=== PATIENT | female | born 1970 | race Caucasian/White ===

== ENCOUNTER 2016-02-29 03:57 | Emergency (ER) | payer OTHER ==
[~2016-02-29] VITALS: Ht 180.3 cm; Wt 99.4 kg
[2016-02-29 05:00] LABS: EOSINOPHIL (%) 6.3 % (0-5); EOSINOPHIL COUNT 0.5 K/uL (0-0.3); IMMATURE GRANULOCYTE (%) 0.1 % (0.0-0.7); IMMATURE GRANULOCYTE COUNT 0.1 K/uL; LYMPHOCYTE COUNT 1.9 K/uL (1.0-2.8); MCH 30.8 PG (29.0-34.0); MCHC 35.1 G/DL (30.0-36.0); MCV 87.8 FL (83-99); MEAN PLAT.VOLUME 10.8 uM^3 (9.5-12.4); MONOCYTE (%) 6.7 % (3-12); MONOCYTE COUNT 0.5 K/uL (0-0.8); NEUTROPHIL (%) 62.2 % (45-76); NEUTROPHIL COUNT 4.8 K/uL (1.8-6.4); PLATELET COUNT 160 K/uL (156-360); RBC DIS.WIDTH-CV 12.8 % (11.8-14.6); RBC DIS.WIDTH-SD 40.2 % (39-53); RED BLOOD COUNT 4.67 M/uL (3.80-5.20); WHITE BLOOD COUNT 7.8 K/uL (4.1-10.2)
[2016-02-29 05:11] LABS: CHLORIDE 105 mEq/L (99-109); POTASSIUM 3.4 mEq/L (3.7-5.4); SODIUM 138 mEq/L (136-147)
[2016-02-29 05:12] LABS: GLUCOSE 127 mg/dL (70-99)
[2016-02-29 05:14] LABS: ANION GAP 10 MEQ/L (2-14)
[2016-02-29 05:16] LABS: GFR ESTIMATE (CALCULATED) > 59 mL/min/
[2016-02-29 05:17] LABS: UREA NITROGEN (BUN) 9 mg/dL (9-23)
[2016-02-29] MEDS ORDERED: DUONEB 2.5-0.5 M3 ML AEROSOL (06:26)
[2016-02-29] MEDS ORDERED: NEBULIZER MC (06:26)
[2016-02-29] MEDS ORDERED: ADULT AEROSOL1 EACH MC (06:26)
[2016-02-29] MEDS ORDERED: ALBUTEROL2.5 MG/3 M IH (06:26)
[2016-02-29] MEDS ORDERED: PROAIR RESPICL90 MCG IH (06:26)
[2016-02-29 06:31] VITALS: BP 129/75
== END 2016-02-29 06:32 | disposition home or self-care (01) ==
LOC: EME 03:57
PROVIDERS: Emergency Medicine
DX: J06.9 Acute upper respiratory infection, unspecified (principal); J45.901 Unspecified asthma with (acute) exacerbation; F17.200 Nicotine dependence, unspecified, uncomplicated
CPT/HCPCS: 71020; 80048; 83880; 85025; 94640; 99281; 99284; J1100

== ENCOUNTER 2016-03-11 21:07 | Inpatient (IN) | payer OTHER ==
[~2016-03-11] VITALS: Ht 180.3 cm; Wt 99.1 kg
[~2016-03-11 21:07] MED LIST: ADULT AEROSOL1 EACH MC; ALBUTEROL2.5 MG/3 M IH; DUONEB 2.5-0.5 M3 ML AEROSOL; NEBULIZER MC; PROAIR RESPICL90 MCG IH
[2016-03-11 21:34] LABS: HEMATOCRIT 41.9 % (36.0-46.0); MCH 30.5 PG (29.0-34.0); MCHC 34.8 G/DL (30.0-36.0); MCV 87.7 FL (83-99); MEAN PLAT.VOLUME 10.7 uM^3 (9.5-12.4); PLATELET COUNT 181 K/uL (156-360); RBC DIS.WIDTH-CV 12.9 % (11.8-14.6); RBC DIS.WIDTH-SD 40.4 % (39-53); RED BLOOD COUNT 4.78 M/uL (3.80-5.20); WHITE BLOOD COUNT 12.5 K/uL (4.1-10.2)
[2016-03-11 21:42] LABS: CHLORIDE 104 mEq/L (99-109); POTASSIUM 3.7 mEq/L (3.7-5.4); SODIUM 141 mEq/L (136-147)
[2016-03-11 21:44] LABS: GLUCOSE 84 mg/dL (70-99)
[2016-03-11 21:45] LABS: ANION GAP 9 MEQ/L (2-14)
[2016-03-11 21:48] LABS: GFR ESTIMATE (CALCULATED) > 59 mL/min/
[2016-03-11 21:49] LABS: UREA NITROGEN (BUN) 8 mg/dL (9-23)
[2016-03-12 00:09] LABS: D-DIMER ELISA 0.19 mg/L FEU (< 0.57)
[2016-03-12 06:22] VITALS: BP 150/68
[2016-03-12 12:00] VITALS: BP 133/76
[2016-03-12 15:20] VITALS: BP 149/89
[2016-03-12 19:18] VITALS: BP 151/79
[2016-03-12 23:15] VITALS: BP 147/78
[2016-03-13 03:47] VITALS: BP 106/60
[2016-03-13 07:32] LABS: EOSINOPHIL (%) 0 % (0-5); HEMATOCRIT 41.4 % (36.0-46.0); IMMATURE GRANULOCYTE (%) 0.2 % (0.0-0.7); LYMPHOCYTE COUNT 0.9 K/uL (1.0-2.8); MCH 30.2 PG (29.0-34.0); MCHC 33.6 G/DL (30.0-36.0); MEAN PLAT.VOLUME 11.2 uM^3 (9.5-12.4); MONOCYTE (%) 2.1 % (3-12); MONOCYTE COUNT 0.4 K/uL (0-0.8); NEUTROPHIL (%) 92.4 % (45-76); PLATELET COUNT 187 K/uL (156-360); RBC DIS.WIDTH-CV 13.3 % (11.8-14.6); RBC DIS.WIDTH-SD 43.7 % (39-53); WHITE BLOOD COUNT 17.4 K/uL (4.1-10.2)
[2016-03-13 07:51] LABS: ALKALINE PHOSPHATASE 62 IU/L (3-129); ANION GAP 10 MEQ/L (2-14); CHLORIDE 105 MEQ/L (99-109); GFR ESTIMATE (CALCULATED) > 59 mL/min/; POTASSIUM 4.4 MEQ/L (3.7-5.4); SAMPLE HEMOLYSIS CHECK 0; SAMPLE ICTERIC CHECK 0; SAMPLE LIPEMIA CHECK 0; SODIUM 140 MEQ/L (136-147); TOTAL BILIRUBIN 0.4 MG/DL (0.0-1.0); UREA NITROGEN (BUN) 12 mg/dL (9-23)
[2016-03-13 07:57] LABS: GLUCOSE 160 mg/dL (70-99)
[2016-03-13 08:00] VITALS: BP 146/63
[2016-03-13 12:00] VITALS: BP 134/65
[2016-03-13 16:00] VITALS: BP 143/82
[2016-03-13 17:00] LABS: INFLUENZA A VIRAL ANTIGEN NEGATIVE; INFLUENZA B VIRAL ANTIGEN NEGATIVE
[2016-03-13 19:55] VITALS: BP 140/88
[2016-03-13 23:55] VITALS: BP 137/80
[2016-03-14 07:39] LABS: EOSINOPHIL (%) 0.1 % (0-5); HEMATOCRIT 39.9 % (36.0-46.0); IMMATURE GRANULOCYTE (%) 0.3 % (0.0-0.7); LYMPHOCYTE COUNT 2.3 K/uL (1.0-2.8); MCH 30.8 PG (29.0-34.0); MCHC 33.6 G/DL (30.0-36.0); MCV 91.7 FL (83-99); MEAN PLAT.VOLUME 11.3 uM^3 (9.5-12.4); MONOCYTE (%) 3.5 % (3-12); MONOCYTE COUNT 0.5 K/uL (0-0.8); NEUTROPHIL COUNT 10.5 K/uL (1.8-6.4); PLATELET COUNT 183 K/uL (156-360); RBC DIS.WIDTH-CV 13.5 % (11.8-14.6); RED BLOOD COUNT 4.35 M/uL (3.80-5.20); WHITE BLOOD COUNT 13.3 K/uL (4.1-10.2)
[2016-03-14 07:52] VITALS: BP 180/96
[2016-03-14 08:04] LABS: ANION GAP 9 MEQ/L (2-14); CHLORIDE 104 MEQ/L (99-109); GFR ESTIMATE (CALCULATED) > 59 mL/min/; POTASSIUM 3.7 MEQ/L (3.7-5.4); SAMPLE HEMOLYSIS CHECK 0; SAMPLE ICTERIC CHECK 0; SAMPLE LIPEMIA CHECK 0; SODIUM 140 MEQ/L (136-147); UREA NITROGEN (BUN) 13 mg/dL (9-23)
[2016-03-14 08:13] LABS: GLUCOSE 99 mg/dL (70-99)
[2016-03-14] MEDS ORDERED: ADVAIR HFA120 INHALA IH (10:27)
[2016-03-14] MEDS ORDERED: CEFTIN500 MG PO (10:27)
[2016-03-14] MEDS ORDERED: PREDNISONE10 MG PO (10:27)
[2016-03-14] MEDS ORDERED: AMLODIPINE BESYL5 MG PO (10:30)
[2016-03-14 10:51] VITALS: BP 168/89
[2016-03-14 12:50] VITALS: BP 156/86
[2016-03-16] MEDS ORDERED: PULMICORT FLE180 MCG IH (12:12)
== END 2016-03-14 13:00 | disposition home or self-care (01) | DRG 189 ==
LOC: EME 21:07 → RME 21:07 → EDOF 03-12 02:32 → 2EASTP 03-12 02:32
PROVIDERS: Hospitalist
DX: J96.01 Acute respiratory failure with hypoxia (principal); J45.901 Unspecified asthma with (acute) exacerbation; J20.9 Acute bronchitis, unspecified; I10 Essential (primary) hypertension; D72.829 Elevated white blood cell count, unspecified; Z87.891 Personal history of nicotine dependence
CPT/HCPCS: 71020; 80048; 80053; 83880; 85025; 85027; 85379; 87502; 93005; 94640; 94640 76; 94644; 94760; 94799; 99202; 99281; 99285; J0456; J0696; J1644; J2920; J2930; J7050; J7512

== ENCOUNTER 2017-05-26 17:06 | Emergency (ER) | payer OTHER ==
[~2017-05-26] VITALS: Ht 180.3 cm; Wt 99.7 kg
[~2017-05-26 17:06] MED LIST changes: +ADVAIR HFA120 INHALA IH; +AMLODIPINE BESYL5 MG PO; +CEFTIN500 MG PO; +PREDNISONE10 MG PO; +PULMICORT FLE180 MCG IH
[2017-05-26 18:38] LABS: HEMATOCRIT 37.5 % (36.0-46.0); HEMOGLOBIN 13.1 G/DL (11.9-15.5); MCHC 34.9 G/DL (30.0-36.0); MCV 85.8 FL (83-99); PLATELET COUNT 127 K/uL (156-360); RBC DIS.WIDTH-CV 12.6 % (11.8-14.6); RBC DIS.WIDTH-SD 39.4 % (39-53); RED BLOOD COUNT 4.37 M/uL (3.80-5.20); WHITE BLOOD COUNT 10.2 K/uL (4.1-10.2)
[2017-05-26 18:49] LABS: CHLORIDE 102 mEq/L (99-109); POTASSIUM 3.3 mEq/L (3.7-5.4); SODIUM 137 mEq/L (136-147)
[2017-05-26 18:50] LABS: GLUCOSE 96 mg/dL (70-99)
[2017-05-26 18:54] LABS: CREATININE 0.7 mg/dL (0.6-1.3); GFR ESTIMATE (CALCULATED) > 59 mL/min/
[2017-05-26 18:55] LABS: UREA NITROGEN (BUN) 13 mg/dL (9-23)
[2017-05-26 18:57] LABS: URIC ACID 7.6 mg/dL (3.1-9.2)
[2017-05-26] MEDS ORDERED: NAPROSYN500 MG PO (19:48)
[2017-05-26 20:15] VITALS: BP 195/92
== END 2017-05-26 20:15 | disposition home or self-care (01) ==
LOC: EME 17:06
PROVIDERS: Physician Assistant
DX: M10.9 Gout, unspecified (principal); J45.909 Unspecified asthma, uncomplicated; F17.200 Nicotine dependence, unspecified, uncomplicated
CPT/HCPCS: 73630; 80048; 84550; 85027; 99281; 99284